=== PATIENT | female | born 1975 | race Caucasian/White ===

== ENCOUNTER 2019-04-03 15:09 | Observation (INO) | payer MEDICARE, MEDICAID ==
[2019-04-03] MEDS ORDERED: MORPHINE SULFATE 10 MG/ML INJ IV ONE ×2 (15:25→17:08)
[2019-04-03] MEDS ORDERED: ONDANSETRON HCL INJ/PF 4 MG/2 ML SDV IV ONE ×2 (15:27→17:09)
--- NOTE | 2019-04-03 15:39 | ER Document Report ---
ED Medical Screen (RME) - General Chief Complaint: Thigh Pain Stated Complaint: THIGH PAIN Time Seen by Provider: 04/03/19 15:25 Mode of Arrival: Wheelchair Information source: Patient Notes: This 43-year-old female presents the emergency department from Dr. Lees at [facility]. Dr. Lees reports that the patient's morphine pump has stalled. She will be taking her to the OR tomorrow to replace the pump. In the meantime she needs her to be treated for withdrawals. She reports she needs IV fluids morphine Zofran she would also like her to have labs. Dr. Lees did attempt to call and admit patient but was told by his supervisor dry paste they did not have any beds. I have greeted and performed a rapid initial assessment of this patient. A comprehensive ED assessment and evaluation of the patient, analysis of test results and completion of the medical decision making process will be conducted by additional ED providers. Dictation of this chart was performed using voice recognition software; therefore, there may be some unintended grammatical errors. TRAVEL OUTSIDE OF THE [place] IN LAST 30 DAYS: No - Related Data Allergies/Adverse Reactions: metformin Allergy (Verified 04/03/19 15:11) codeine [Codeine] Adverse Reaction (Severe, Verified 09/18/14 11:11) CHEST PAINA zolpidem tartrate [From Ambien] Adverse Reaction (Intermediate, Verified 09/18/14 11:11) "[place] FELLING" Past Medical History - Social History Frequency of alcohol use: None Drug Abuse: None - Past Medical History Cardiac Medical History: Reports: Hx Coronary Artery Disease - HIGH CHOL, Hx H ypertension Denies: Hx Heart Attack Pulmonary Medical History: Denies: Hx Asthma, Hx Bronchitis, Hx COPD, Hx Pneumonia Neurological Medical History: Denies: Hx Cerebrovascular Accident, Hx Seizures Renal/ Medical History: Denies: Hx Peritoneal Dialysis Musculoskeltal Medical History: Denies Hx Arthritis - Immunizations Hx Diphtheria, Pertussis, Tetanus Vaccination: Yes Physical Exam - Vital signs Vitals: Temp Pulse Resp BP Pulse Ox 98.4 F 87 18 149/81 H 99 04/03/19 15:17 04/03/19 15:17 04/03/19 15:17 04/03/19 15:17 04/03/19 15:17 Course - Vital Signs Vital signs: Temp Pulse Resp BP Pulse Ox 97.8 F 87 26 H 161/89 H 93 04/03/19 19:01 04/03/19 15:17 04/03/19 19:01 04/03/19 19:01 04/03/19 19:01 - Laboratory Result Diagrams: 04/03/19 15:44 04/03/19 15:44 Laboratory results interpreted by me: 04/03/19 04/03/19 04/03/19 15:44 15:44 17:40 Lymph % (Auto) 10.0 L Absolute Neuts (auto) 9.1 H Seg Neutrophils % 86.2 H Sodium 135.0 L Potassium 3.5 L Glucose 126 H Urine Ketones TRACE H Doctor's Discharge - Discharge Clinical Impression: Opiate withdrawal, Chronic pain Condition: Stable Disposition: ADMITTED OBSERVATION
[2019-04-03 16:05] LABS: ABSOLUTE LYMPHOCYTES (AUTO) 1.1 10^3/uL (0.5-4.7); ABSOLUTE MONOCYTES (AUTO) 0.4 10^3/uL (0.1-1.4); ABSOLUTE NEUT (AUTO) 9.1 10^3/uL (1.7-8.2); BASOPHILS % (AUTO) 0.4 % (0-2); HEMATOCRIT 38.9 % (36.0-47.0); HEMOGLOBIN 13.3 g/dL (12.0-15.5); MEAN CORPUSCULAR HEMOGLOBIN 30.2 pg (27.0-33.4); MEAN CORPUSCULAR HGB CONC 34.2 g/dL (32.0-36.0); MEAN CORPUSCULAR VOLUME 88 fl (80-97); MONOCYTES % (AUTO) 3.4 % (3-13); PLATELET COUNT 282 10^3/uL (150-450); RED CELL DISTRIBUTION WIDTH 13.1 % (11.5-14.0); SEGMENTED NEUTROPHILS % (AUTO) 86.2 % (42-78); TOTAL CELLS COUNTED % (AUTO) 100 %; WHITE BLOOD COUNT 10.5 10^3/uL (4.0-10.5)
[2019-04-03 16:15] LABS: INTERNATIONAL RATION (INR) 0.99; PARTIAL THROMBOPLASTIN TIME 24.2 SEC (23.5-35.8); PROTHROMBIN TIME 13.1 SEC (11.4-15.4)
[2019-04-03 16:22] LABS: ALBUMIN 4.1 g/dL (3.5-5.0); ALKALINE PHOSPHATASE 109 U/L (38-126); ANION GAP 10 (5-19); ASPARTATE AMINO TRANSFERASE 20 U/L (14-36); BILIRUBIN,DIRECT 0.4 mg/dL (0.0-0.4); BILIRUBIN,TOTAL 0.9 mg/dL (0.2-1.3); BLOOD UREA NITROGEN 10 mg/dL (7-20); CALCIUM 9.5 mg/dL (8.4-10.2); CARBON DIOXIDE 27 mmol/L (22-30); CHLORIDE 98 mmol/L (98-107); GLUCOSE 126 mg/dL (75-110); POTASSIUM 3.5 mmol/L (3.6-5.0); TOTAL PROTEIN 7.2 g/dL (6.3-8.2)
[2019-04-03] MEDS ORDERED: CLONIDINE 0.1 MG/24 HR PATCH.TDWK TD ONE (17:09)
--- NOTE | 2019-04-03 17:15 | ER Document Report ---
ED General - General Chief Complaint: Thigh Pain Stated Complaint: THIGH PAIN Time Seen by Provider: 04/03/19 15:25 Mode of Arrival: Wheelchair TRAVEL OUTSIDE OF THE [place] IN LAST 30 DAYS: No - HPI Notes: Patient is a 43-year-old female with chronic back pain, status post pain pump implantation in 2014, who presents to the emergency department for evaluation of vomiting, diarrhea, increased pain, and opiate withdrawal. Evidently the pump started beeping on Monday. She was unaware of what that meant. She contacted pain management on Monday evening when she started having severe nausea and diarrhea. Her symptoms are consistent with withdrawal. The beeping was evidently an indicator that the pump was no longer functioning. She spoke with Dr. Lees at [facility], unfortunately there were no beds available initially. Basic laboratory investigations were obtained, medications administered, and patient is currently awaiting a bed. At this point the pat ient states she just feels pain all over. She has had multiple episodes of diarrhea, at least 10 in the last 24 hours. She did get some improvement with some Imodium. She is had nausea and dry heaves, but no villa emesis. - Related Data Allergies/Adverse Reactions: metformin Allergy (Verified 04/03/19 15:11) codeine [Codeine] Adverse Reaction (Severe, Verified 09/18/14 11:11) CHEST PAINA zolpidem tartrate [From Ambien] Adverse Reaction (Intermediate, Verified 09/18/14 11:11) "[place] FELLING" Past Medical History - General Information source: Patient - Social History Smoking Status: Never Smoker Frequency of alcohol use: None Drug Abuse: None Family History: Reviewed & Not Pertinent Patient has suicidal ideation: No Patient has homicidal ideation: No - Past Medical History Cardiac Medical History: Reports: Hx Hypercholesterolemia, Hx Hypertension Denies: Hx Heart Attack Pulmonary Medical History: Denies: Hx Asthma, Hx Bronchitis, Hx COPD, Hx Pneumonia Neurological Medical History: Denies: Hx Cerebrovascular Accident, Hx Seizures Renal/ Medical History: Denies: Hx Peritoneal Dialysis Musculoskeletal Medical History: Denies Hx Arthritis, Reports Other - Chronic back pain - Immunizations Hx Diphtheria, Pertussis, Tetanus Vaccination: Yes Review of Systems - Review of Systems Constitutional: See HPI, Chills EENT: No symptoms reported Cardiovascular: No symptoms reported Respiratory: No symptoms reported Gastrointestinal: See HPI Genitourinary: No symptoms reported Musculoskeletal: See HPI Skin: No symptoms reported Neurological/Psychological: No symptoms reported Physical Exam - Vital signs Vitals: Temp Pulse Resp BP Pulse Ox 98.4 F 87 18 149/81 H 99 04/03/19 15:17 04/03/19 15:17 04/03/19 15:17 04/03/19 15:17 04/03/19 15:17 - Notes Notes: This is a pleasant 43-year-old female who appears her stated age in no acute distress. She is lying in bed, seems mildly uncomfortable. Head is neuropsych and atraumatic. Pupils are equal round, reactive to light. Oral mucosa is moist. Heart regular and rhythm, lungs are clear to station bilaterally. Abdomen soft, nontender, normoactive bowel sounds. Examination of the spine yields well-healing surgical scar over the lumbosacral spine without signs of dehiscence or erythema. She has marked tenderness to palpation throughout the spine. Skin is warm and dry. Peripheral pulses are equal. Posterior calves nontender. Course - Re-evaluation Re-evalutation: 04/03/19 17:14 Patient presents to the emergency department for evaluation. This patient is clearly in opiate withdrawal. She was initially medicated with Zofran, morphine. I further medicated her with morphine, Zofran, and a clonidine patch was applied. Laboratory investigations were obtained and were largely unremarkable. We do not have beds available. I spoke with Dr. Lees, who will come to the emergency department to evaluate the patient and set her up for admission. - Vital Signs Vital signs: Temp Pulse Resp BP Pulse Ox 97.6 F 68 17 143/71 H 98 04/03/19 22:58 04/03/19 22:58 04/03/19 22:58 04/03/19 22:58 04/03/19 22:58 - Laboratory Result Diagrams: 04/03/19 15:44 04/03/19 15:44 Laboratory results interpreted by me: 04/03/19 04/03/19 04/03/19 15:44 15:44 17:40 Lymph % (Auto) 10.0 L Absolute Neuts (auto) 9.1 H Seg Neutrophils % 86.2 H Sodium 135.0 L Potassium 3.5 L Glucose 126 H Urine Ketones TRACE H - EKG Interpretation by Me Additional EKG results interpreted by me: 04/03/19 17:15 Sinus mechanism with a rate of 72 bpm, PAC noted. Normal axis and intervals, no acute ST changes concerning for ischemia or infarction. Discharge - Discharge Clinical Impression: Opiate withdrawal Chronic pain Qualifiers: Chronic pain type: other chronic pain Qualified Code(s): G89.29 - Other chronic pain Condition: Stable Disposition: ADMITTED OBSERVATION Admitting Provider: Dr. Lees Unit Admitted: Medical Floor
[2019-04-03] MEDS ORDERED: NORMAL SALINE 1000 ML 1,000 ML IV PRN (18:07)
[2019-04-03] MEDS ORDERED: ONDANSETRON HCL INJ/PF 4 MG/2 ML SDV IV PRN (18:08)
[2019-04-03] MEDS ORDERED: MORPHINE SULFATE 10 MG/ML INJ IV PRN (18:08)
--- NOTE | 2019-04-03 18:28 | EKG REPORT ---
SEVERITY:- OTHERWISE NORMAL ECG - SINUS RHYTHM ATRIAL PREMATURE COMPLEX : Confirmed by: Wilner Wilson MD 03-Apr-2019 18:28:34
[2019-04-03 18:32] LABS: APPEARANCE,URINE SLIGHTLY-CLOUDY; BILIRUBIN,URINE NEGATIVE (NEGATIVE); COLOR,URINE YELLOW; GLUCOSE, URINE NEGATIVE (NEGATIVE); KETONES,URINE TRACE mg/dL (NEGATIVE); LEUKOCYTE ESTERASE,URINE NEGATIVE (NEGATIVE); NITRITE,URINE NEGATIVE (NEGATIVE); PROTEIN,URINE NEGATIVE (NEGATIVE); URINE SPECIFIC GRAVITY 1.018; UROBILINOGEN,URINE NEGATIVE mg/dL (<2.0)
[2019-04-03] MEDS: NORMAL SALINE 1000 ML 1,000 ML IV PRN ×2 (19:16→23:18)
[2019-04-03] MEDS: MORPHINE SULFATE IR 30 MG TABLET PO SCH ×2 (19:26→23:17)
[2019-04-03] MEDS: PREGABALIN 50 MG CAPSULE PO SCH (19:27)
[2019-04-03] MEDS ORDERED: CLONIDINE 0.2 MG/24 HR PATCH.TDWK TD SCH (21:00)
[2019-04-03] MEDS: GABAPENTIN 300 MG CAPSULE PO SCH (21:56)
[2019-04-03] MEDS: NORTRIPTYLINE HCL 25 MG CAPSULE PO SCH (21:56)
[2019-04-03] MEDS: ATORVASTATIN CALCIUM 20 MG TABLET PO SCH (21:56)
[2019-04-04] MEDS ORDERED: CEFAZOLIN 1 GM/D5W RTU 1 GM/50 ML RTUPB IV PRN (05:00)
[2019-04-04] MEDS: PREGABALIN 50 MG CAPSULE PO SCH ×2 (05:09→17:02)
[2019-04-04] MEDS: MORPHINE SULFATE IR 30 MG TABLET PO SCH ×4 (05:09→23:25)
[2019-04-04] MEDS: NORMAL SALINE 1000 ML 1,000 ML IV PRN (05:10)
[2019-04-04] MEDS ORDERED: BUPIVACAINE HCL 0.25% /EPINEPHRINE INJ/PF 30 ML SDV ONE (08:32)
[2019-04-04] MEDS ORDERED: LIDOCAINE 1% INJ-PF (10 MG/ML) 30 ML SDV ONE (08:32)
[2019-04-04] MEDS ORDERED: SODIUM BICARBONATE 4.2% INJ (2.5 MEQ/5 ML) VIAL ONE (08:32)
[2019-04-04] MEDS: NORTRIPTYLINE HCL 25 MG CAPSULE PO SCH ×2 (08:43→21:39)
[2019-04-04] MEDS ORDERED: ACETAMINOPHEN 325 MG TABLET PO PRN (09:41)
[2019-04-04] MEDS ORDERED: ESTRADIOL PO SCH (10:00)
[2019-04-04] MEDS: CHOLECALCIFEROL (D3) 1,000 UNIT (25 MCG) TABLET PO SCH (10:04)
[2019-04-04] MEDS: LOSARTAN POTASSIUM 50 MG TABLET PO SCH (10:04)
[2019-04-04] MEDS: AMLODIPINE BESYLATE 10 MG TABLET PO SCH (10:05)
[2019-04-04] MEDS: POTASSIUM CHLORIDE 10 MEQ CAPSULE.ER PO SCH (10:05)
[2019-04-04] MEDS: FUROSEMIDE 40 MG TABLET PO SCH (10:05)
[2019-04-04] MEDS: PANTOPRAZOLE SODIUM 40 MG TABLET.DR PO SCH (10:05)
[2019-04-04] MEDS: HYDROCHLOROTHIAZIDE 25 MG TABLET PO SCH (10:05)
[2019-04-04] MEDS: CETIRIZINE 10 MG TABLET PO SCH (10:06)
[2019-04-04] MEDS: PAROXETINE HCL 20 MG TABLET PO SCH (10:06)
[2019-04-04] MEDS: GABAPENTIN 300 MG CAPSULE PO SCH ×2 (10:06→21:40)
--- NOTE | 2019-04-04 12:50 | RADIOLOGY REPORT (SQ) ---
EXAM DESCRIPTION: CHEST SINGLE VIEW COMPLETED DATE/TIME: 04/04/2019 10:20 am REASON FOR STUDY: pre op COMPARISON: None. EXAM PARAMETERS: NUMBER OF VIEWS: One view. TECHNIQUE: Single frontal radiographic view of the chest acquired. RADIATION DOSE: NA LIMITATIONS: None. FINDINGS: LUNGS AND PLEURA: No opacities, masses or pneumothorax. No pleural effusion. MEDIASTINUM AND HILAR STRUCTURES: No masses. Contour normal. HEART AND VASCULAR STRUCTURES: Heart size is borderline. There is no pulmonary edema. BONES: No acute findings. HARDWARE: None in the chest. OTHER: No other significant finding. IMPRESSION: Cardiomegaly without pulmonary edema. TECHNICAL DOCUMENTATION: JOB ID: [id number] [employer]- All Rights Reserved Reading location - IP/workstation name: [email or web address]
[2019-04-04] MEDS ORDERED: FENTANYL CITRATE INJ/PF 100 MCG/2 ML AMPUL ONE (12:52)
[2019-04-04] MEDS ORDERED: CEFAZOLIN INJ 1 GM VIAL ONE ×2 (13:32→15:25)
[2019-04-04] MEDS ORDERED: ONDANSETRON HCL INJ/PF 4 MG/2 ML SDV IV PRN (13:50)
[2019-04-04] MEDS ORDERED: MEPERIDINE HCL/PF INJ 25 MG/1 ML DISP.SYRIN IV PRN (13:50)
[2019-04-04] MEDS ORDERED: DIPHENHYDRAMINE HCL 50 MG/ML VIAL IV PRN (13:50)
[2019-04-04] MEDS ORDERED: FENTANYL CITRATE INJ/PF 100 MCG/2 ML AMPUL IV PRN ×3 (13:50)
[2019-04-04] MEDS ORDERED: MORPHINE SULFATE 10 MG/ML INJ IV PRN (13:50)
[2019-04-04] MEDS ORDERED: CEFAZOLIN 1 GM/D5W RTU 1 GM/50 ML RTUPB IV SCH (14:00)
--- NOTE | 2019-04-04 15:15 | Operative Report ---
Operative Report DATE OF SURGERY: 04/04/19 PREOPERATIVE DIAGNOSIS: Intrathecal pump malfunction POSTOPERATIVE DIAGNOSIS: Same OPERATION: Pump replacement reprogramming SURGEON: TAY AVALOS ANESTHESIA: LMAC TISSUE REMOVED OR ALTERED: pump PROCEDURE: Patient was taken to the operating room placed comfortably in the supine position. MAC anesthesia was administered monitors were applied. Patient was prepped 2 times with chlorhexidine with appropriate drying time. she was then draped in usual fashion. Previous pump insertion site was readily identified the scar was anesthetized with 1% lidocaine with sodium bicarbonate followed by quarter percent bupivacaine with epinephrine sharp and blunt dissection were performed to remove the pump easily from the pump pocket site pocket site was intact with healthy scar tissue around the pump all stay sutures were removed spinal fluid access port was aspirated with free-flowing cerebrospinal fluid 4 cc were removed pump was then disconnected from the catheter nipple simultaneously the new pump was prepped with the appropriate medication morphine and bupivacaine and connected to the nipple. The nipple was secured with 0 Mersilene ties the pump pocket was enlarged with incision along the scar tissue medially inferiorly and superiorly to stay sutures were placed in the pump 1 superior medial and one lateral superior lateral. Pump pocket was irrigated with copious amounts of Betadine irrigation solution was then placed into the pocket with the spinal access port facing medially the stay sutures were secured. The excess spinal catheter was placed behind the pump. The capsule was then closed with inverted vertical mattress sutures using 2-0 Polysorb the skin was then closed with a running subcuticular 4-0 Polysorb the skin was sealed with Exoderm cement and when this was dry Telfa and Tegaderm were placed upon it was then taken to the PACU for further postoperative care and monitoring.
[2019-04-04] MEDS ORDERED: PROPOFOL INJ 200 MG/20 ML VIAL IV ONE (15:24)
[2019-04-04] MEDS ORDERED: OXYCODONE-ACETAMINOPHEN 5-325 MG TABLET PO PRN (15:26)
[2019-04-04] MEDS: ATORVASTATIN CALCIUM 20 MG TABLET PO SCH (21:40)
[2019-04-04] MEDS: CEFAZOLIN 1 GM/D5W RTU 1 GM/50 ML RTUPB IV SCH (21:41)
[2019-04-05] MEDS: PREGABALIN 50 MG CAPSULE PO SCH (05:25)
[2019-04-05] MEDS: CEFAZOLIN 1 GM/D5W RTU 1 GM/50 ML RTUPB IV SCH (05:27)
[2019-04-05] MEDS: MORPHINE SULFATE IR 30 MG TABLET PO SCH (05:27)
[2019-04-05 09:05] VITALS: BP 134/81
[2019-04-05] MEDS: POTASSIUM CHLORIDE 10 MEQ CAPSULE.ER PO SCH (09:25)
[2019-04-05] MEDS: AMLODIPINE BESYLATE 10 MG TABLET PO SCH (09:25)
[2019-04-05] MEDS: HYDROCHLOROTHIAZIDE 25 MG TABLET PO SCH (09:25)
[2019-04-05] MEDS: LOSARTAN POTASSIUM 50 MG TABLET PO SCH (09:25)
[2019-04-05] MEDS: CETIRIZINE 10 MG TABLET PO SCH (09:25)
[2019-04-05] MEDS: CHOLECALCIFEROL (D3) 1,000 UNIT (25 MCG) TABLET PO SCH (09:26)
[2019-04-05] MEDS: GABAPENTIN 300 MG CAPSULE PO SCH (09:26)
[2019-04-05] MEDS: PANTOPRAZOLE SODIUM 40 MG TABLET.DR PO SCH (09:27)
[2019-04-05] MEDS: PAROXETINE HCL 20 MG TABLET PO SCH (09:27)
[2019-04-05] MEDS: FUROSEMIDE 40 MG TABLET PO SCH (09:29)
[2019-04-05] MEDS: NORTRIPTYLINE HCL 25 MG CAPSULE PO SCH (09:30)
== END 2019-04-05 10:36 | disposition home or self-care (01) ==
LOC: ER 15:09 → EH 17:52 → 5 20:10
PROVIDERS: ADMIT Pain Medicine Interventional Pain Medicine; ATTEND Pain Medicine Interventional Pain Medicine
PROC: 00HU03Z Insertion of Infusion Device into Spinal Canal, Open Approach (ICD-10-PCS; 2019-04-04)
PROC: 0JPT0VZ Removal of Infusion Pump from Trunk Subcutaneous Tissue and Fascia, Open Approach (ICD-10-PCS; 2019-04-04)
PROC: 0JH70VZ Insertion of Infusion Pump into Back Subcutaneous Tissue and Fascia, Open Approach (ICD-10-PCS; 2019-04-04)
PROC: 00PU03Z Removal of Infusion Device from Spinal Canal, Open Approach (ICD-10-PCS; principal; 2019-04-04 13:30)
DX: T85.615A Breakdown (mechanical) of other nervous system device, implant or graft, initial encounter (principal); Y83.8 Other surgical procedures as the cause of abnormal reaction of the patient, or of later complication, without mention of misadventure at the time of the procedure; G89.4 Chronic pain syndrome; F11.23 Opioid dependence with withdrawal; T40.2X5A Adverse effect of other opioids, initial encounter; M96.1 Postlaminectomy syndrome, not elsewhere classified; M54.16 Radiculopathy, lumbar region; F32.9 Major depressive disorder, single episode, unspecified; M54.17 Radiculopathy, lumbosacral region; I10 Essential (primary) hypertension; R29.6 Repeated falls; M47.816 Spondylosis without myelopathy or radiculopathy, lumbar region; M25.551 Pain in right hip; E66.01 Morbid (severe) obesity due to excess calories; K21.9 Gastro-esophageal reflux disease without esophagitis; E78.5 Hyperlipidemia, unspecified; Z79.82 Long term (current) use of aspirin; Z79.899 Other long term (current) drug therapy
CPT/HCPCS: 62350; 62362; 93005; 96376; 99285; 96361; 96374; 96375; 36415; 85025; 85610; 85730; 80053; 81001; 71045; 93010; 00400; G0378 ×4; C1772; A9270 ×26; J2250; J3490 ×6; J0690 ×3; J1100; J3010; J2270; J2405 ×3; J7030 ×2; J2704; 400